=== PATIENT | female | born 1995 | race Caucasian/White ===

== ENCOUNTER 2017-12-02 19:49 | Inpatient (IN) | payer BC ==
[~2017-12-02] VITALS: Ht 165.1 cm; Wt 95.5 kg
[2017-12-02] MEDS ORDERED: EFFEXOR XR150 MG PO (20:17)
[2017-12-02] MEDS ORDERED: FARXIGA10 MG PO (20:17)
[2017-12-02] MEDS ORDERED: TRADJENTA5 MG PO (20:17)
[2017-12-02 21:31] LABS: BASOPHILS 0.2 % (0-2); EOSINOPHILS 0.5 % (0-7); HEMATOCRIT 36.6 % (36.0-48.0); IMMATURE GRANULOCYTES 0.6 % (0-5); LYMPHOCYTES 15.8 % (15-50); MCH 26.2 pg (26.0-34.0); MCHC 35.5 g/dL (31.0-37.0); MONOCYTES 7.7 % (2-11); NEUTROPHILS 75.2 % (40-80); RBC 4.96 10x6/uL (4.00-5.40); RDW 14.9 % (11.5-14.5); WBC 10.4 10x3/uL (4.8-10.8)
[2017-12-02 21:38] LABS: PLATELET COUNT 179 10x3/uL (130-400)
[2017-12-02 21:43] LABS: APPEARANCE CLEAR (CLEAR); BILIRUBIN NEGATIVE (NEGATIVE); COLOR YELLOW (YELLOW); GLUCOSE 1000 mg/dL (NEGATIVE); KETONE NEGATIVE (NEGATIVE); NITRITE NEGATIVE (NEGATIVE); PROTEIN NEGATIVE (NEGATIVE); SPECIFIC GRAVITY 1.015 (1.005-1.020); UROBILINOGEN NORMAL (NORMAL)
[2017-12-02 21:44] LABS: BACTERIA FEW /hpf (NONE SEEN); EPITHELIAL CELLS 0-5 /hpf (0-5); RED CELLS - URINE 0-5 /hpf (0-5); WHITE CELLS - URINE 0-5 /hpf (0-5); YEAST <1+ /hpf (NONE SEEN)
[2017-12-02 21:55] LABS: BILIRUBIN - TOTAL 0.93 mg/dL (0.2-1.3); CHLORIDE - SERUM 96 mmol/L (98-107); HCG - QUANTITATIVE (MATERNAL) 0 mIU/mL; LIPASE 621 U/L (73-393); POTASSIUM - SERUM 3.5 mmol/L (3.5-5.1); SODIUM 132 mmol/L (136-145)
[2017-12-02 22:07] LABS: CALC OSMOLALITY 271 mosm/kg (275-300); CREATININE - SERUM 0.6 mg/dL (0.6-1.3); UREA NITROGEN 11 mg/dL (7-18)
[2017-12-02 22:08] LABS: ALBUMIN 2.9 g/dL (3.4-5.0); ALKALINE PHOSPHATASE 111 U/L (46-116); ALT (SGPT) 28 U/L (10-68); CALCIUM 8.3 mg/dL (8.5-10.1); CARBON DIOXIDE 29.4 mmol/L (21.0-32.0); GLUCOSE 251 mg/dL (74-106); PROTEIN - SERUM 7.5 g/dL (6.4-8.2); eGFR NON AFRICAN AMERICAN > 90 mL/min (90-120)
[2017-12-02 23:08] LABS: HEMOGLOBIN 11.3 g/dL (12-16); MCV 73.9 fL (80.0-100.0)
[2017-12-03] MEDS ORDERED: HUMULIN R100 U/ML SC (05:09)
[2017-12-03] MEDS ORDERED: ELAVIL10 MG PO (05:29)
[2017-12-03] MEDS ORDERED: BUPROPION HCL100 M1 PO (05:29)
[2017-12-03] MEDS ORDERED: PROTONIX40 MG PO (05:29)
[2017-12-03] MEDS ORDERED: BUSPAR10 MG PO (05:30)
[2017-12-03] MEDS ORDERED: ADVIL200 MG PO (05:31)
[2017-12-03] MEDS ORDERED: CYCLOBENZAPRINE10 MG PO (05:31)
[2017-12-03 05:49] VITALS: BP 100/63
[2017-12-03 08:21] VITALS: BP 117/71
[2017-12-03 09:06] VITALS: BP 117/71; BMI 35.0
[2017-12-03 11:52] VITALS: BP 126/68
[2017-12-03 12:03] LABS: HEMOGLOBIN 11.1 g/dL (12-16); MCH 23.6 pg (26.0-34.0); MCHC 31.7 g/dL (31.0-37.0); MCV 74.3 fL (80.0-100.0); MEAN PLATELET VOLUME 11.5 fL (7.4-10.4); RBC 4.71 10x6/uL (4.00-5.40)
[2017-12-03 12:04] LABS: PLATELET COUNT 125 10x3/uL (130-400); WBC 7.4 10x3/uL (4.8-10.8)
[2017-12-03 12:36] LABS: EOSINOPHILS 1 % (0-7); LYMPHOCYTES 11 % (15-50); MONOCYTES 4 % (2-11); NEUTROPHILS 84 % (40-80); PLATELET MORPHOLOGY GIANT PLTS PRESENT
[2017-12-03 12:37] LABS: PLATELET ESTIMATE DECREASED
[2017-12-03 12:38] LABS: HYPOCHROMASIA 1+
[2017-12-03 13:20] LABS: ALBUMIN 2.7 g/dL (3.4-5.0); ALKALINE PHOSPHATASE 98 U/L (46-116); AMYLASE - SERUM 31 U/L (25-115); BILIRUBIN - TOTAL 0.46 mg/dL (0.2-1.3); CALC OSMOLALITY 282 mosm/kg (275-300); CALCIUM 8.4 mg/dL (8.5-10.1); CARBON DIOXIDE 21.3 mmol/L (21.0-32.0); CHLORIDE - SERUM 104 mmol/L (98-107); CREATININE - SERUM 0.6 mg/dL (0.6-1.3); GLUCOSE 154 mg/dL (74-106); LIPASE 277 U/L (73-393); POTASSIUM - SERUM 3.4 mmol/L (3.5-5.1); PROTEIN - SERUM 6.6 g/dL (6.4-8.2); SODIUM 141 mmol/L (136-145); UREA NITROGEN 10 mg/dL (7-18); eGFR NON AFRICAN AMERICAN > 90 mL/min (90-120)
[2017-12-03 13:58] LABS: ALT (SGPT) 21 U/L (10-68)
[2017-12-03 15:47] VITALS: BP 122/77
[2017-12-03 20:35] VITALS: BP 115/72
[2017-12-04 01:41] VITALS: BP 108/71
[2017-12-04 04:00] VITALS: BP 114/60
[2017-12-04 06:59] LABS: ALBUMIN 2.7 g/dL (3.4-5.0); ALKALINE PHOSPHATASE 109 U/L (46-116); ALT (SGPT) 18 U/L (10-68); BILIRUBIN - TOTAL 0.58 mg/dL (0.2-1.3); CARBON DIOXIDE 20.3 mmol/L (21.0-32.0); CHLORIDE - SERUM 102 mmol/L (98-107); CREATININE - SERUM 0.6 mg/dL (0.6-1.3); LIPASE 182 U/L (73-393); POTASSIUM - SERUM 3.8 mmol/L (3.5-5.1); PROTEIN - SERUM 6.5 g/dL (6.4-8.2); SODIUM 139 mmol/L (136-145); UREA NITROGEN 9 mg/dL (7-18); eGFR NON AFRICAN AMERICAN > 90 mL/min (90-120)
[2017-12-04 07:01] LABS: BASOPHILS 0.1 % (0-2); EOSINOPHILS 0.1 % (0-7); HEMATOCRIT 37.7 % (36.0-48.0); HEMOGLOBIN 11.5 g/dL (12-16); IMMATURE GRANULOCYTES 0.7 % (0-5); LYMPHOCYTES 9.2 % (15-50); MCH 23.5 pg (26.0-34.0); MCHC 30.5 g/dL (31.0-37.0); MONOCYTES 6.9 % (2-11); PLATELET COUNT 141 10x3/uL (130-400); RDW 15.6 % (11.5-14.5)
[2017-12-04 07:02] LABS: CALC OSMOLALITY 275 mosm/kg (275-300); GLUCOSE 75 mg/dL (74-106)
[2017-12-04 07:03] LABS: MCV 76.9 fL (80.0-100.0); WBC 10.8 10x3/uL (4.8-10.8)
[2017-12-04 07:07] LABS: CHOL - HDL RATIO 9.1 ratio (2.3-4.1); CHOLESTEROL, TOTAL 209 mg/dL (0-200); HDL CHOLESTEROL 23 mg/dL (32-96); TRIGLYCERIDE 670 mg/dL (30-200)
[2017-12-04 09:22] VITALS: BP 113/76
[2017-12-04 13:18] VITALS: Ht 165.1 cm; Wt 95.5 kg
[2017-12-04 16:24] VITALS: BP 113/71
[2017-12-04 21:58] VITALS: BP 113/74
[2017-12-05 00:56] VITALS: BP 107/61
[2017-12-05 05:42] LABS: BASOPHILS 0.1 % (0-2); EOSINOPHILS 1.1 % (0-7); HEMATOCRIT 30.9 % (36.0-48.0); HEMOGLOBIN 9.2 g/dL (12-16); IMMATURE GRANULOCYTES 0.6 % (0-5); MCH 23.1 pg (26.0-34.0); MCHC 29.8 g/dL (31.0-37.0); MCV 77.4 fL (80.0-100.0); MEAN PLATELET VOLUME 11.5 fL (7.4-10.4); MONOCYTES 8.4 % (2-11); NEUTROPHILS 75.8 % (40-80); PLATELET COUNT 150 10x3/uL (130-400); RBC 3.99 10x6/uL (4.00-5.40); RDW 15.7 % (11.5-14.5); WBC 8.1 10x3/uL (4.8-10.8)
[2017-12-05 06:10] VITALS: BP 116/72
[2017-12-05 06:16] LABS: INR 1.08 (0.85-1.17); PROTIME 13.6 SECONDS (11.6-15.0)
[2017-12-05 07:44] LABS: ALKALINE PHOSPHATASE 81 U/L (46-116); BILIRUBIN - TOTAL 0.37 mg/dL (0.2-1.3); CALCIUM 7.5 mg/dL (8.5-10.1); CARBON DIOXIDE 18.8 mmol/L (21.0-32.0); CHLORIDE - SERUM 99 mmol/L (98-107); CREATININE - SERUM 0.7 mg/dL (0.6-1.3); LIPASE 115 U/L (73-393); PROTEIN - SERUM 5.9 g/dL (6.4-8.2); SODIUM 129 mmol/L (136-145); eGFR NON AFRICAN AMERICAN > 90 mL/min (90-120)
[2017-12-05 07:46] LABS: ALT (SGPT) 12 U/L (10-68); AMYLASE - SERUM 18 U/L (25-115); POTASSIUM - SERUM 3.1 mmol/L (3.5-5.1); UREA NITROGEN 3 mg/dL (7-18)
[2017-12-05 08:25] VITALS: BP 115/69
[2017-12-05 08:58] LABS: CALC OSMOLALITY 259 mosm/kg (275-300)
[2017-12-05 09:00] LABS: GLUCOSE 177 mg/dL (74-106)
[2017-12-05 11:54] VITALS: BP 122/75
[2017-12-05 20:00] VITALS: BP 117/60
[2017-12-05 23:33] VITALS: BP 105/65
[2017-12-06 04:00] VITALS: BP 108/71
[2017-12-06 05:35] LABS: BASOPHILS 0.2 % (0-2); EOSINOPHILS 2.8 % (0-7); HEMATOCRIT 31.9 % (36.0-48.0); HEMOGLOBIN 9.9 g/dL (12-16); IMMATURE GRANULOCYTES 1.1 % (0-5); LYMPHOCYTES 24.9 % (15-50); MCH 23.4 pg (26.0-34.0); MONOCYTES 10.8 % (2-11); NEUTROPHILS 60.2 % (40-80); PLATELET COUNT 149 10x3/uL (130-400); RBC 4.23 10x6/uL (4.00-5.40); RDW 15.3 % (11.5-14.5)
[2017-12-06 06:03] LABS: MCV 75.4 fL (80.0-100.0); WBC 5.4 10x3/uL (4.8-10.8)
[2017-12-06 06:06] LABS: % SATURATION 9 % (15-55); IRON 26 ug/dl (35-150); TOTAL IRON BIND CAPACITY 282 ug/dl (260-445); UNSAT IRON BIND CAPACITY 256 ug/dl (150-375)
[2017-12-06 06:17] LABS: ALBUMIN 2.1 g/dL (3.4-5.0); ALKALINE PHOSPHATASE 82 U/L (46-116); ALT (SGPT) 13 U/L (10-68); BILIRUBIN - TOTAL 0.19 mg/dL (0.2-1.3); CALCIUM 8.3 mg/dL (8.5-10.1); CHLORIDE - SERUM 104 mmol/L (98-107); FERRITIN 71 ng/mL (3-244); GLUCOSE 172 mg/dL (74-106); LIPASE 171 U/L (73-393); PROTEIN - SERUM 6.2 g/dL (6.4-8.2); SODIUM 140 mmol/L (136-145)
[2017-12-06 06:18] LABS: AMYLASE - SERUM 25 U/L (25-115); CALC OSMOLALITY 278 mosm/kg (275-300); CARBON DIOXIDE 26.9 mmol/L (21.0-32.0); CREATININE - SERUM 0.5 mg/dL (0.6-1.3); POTASSIUM - SERUM 2.9 mmol/L (3.5-5.1); UREA NITROGEN 2 mg/dL (7-18); eGFR NON AFRICAN AMERICAN > 90 mL/min (90-120)
[2017-12-06 07:45] VITALS: BP 94/56
[2017-12-06 11:42] VITALS: BP 113/59
[2017-12-06] MEDS ORDERED: MIRALAX17 GM PO (12:15)
[2017-12-06] MEDS ORDERED: TRICOR48 MG PO (12:15)
== END 2017-12-06 15:33 | disposition home or self-care (01) | DRG 439 ==
LOC: D.ER 19:49 → D.EDHOLD 12-03 03:50 → D.M2 12-03 03:50 → D.SDCHOLD 12-04 15:55 → D.M2 12-06 15:33
PROVIDERS: Family Medicine; Internal Medicine Gastroenterology; Internal Medicine Nephrology
DX: K85.90 Acute pancreatitis without necrosis or infection, unspecified (principal); E87.1 Hypo-osmolality and hyponatremia; K21.9 Gastro-esophageal reflux disease without esophagitis; E78.1 Pure hyperglyceridemia; E11.9 Type 2 diabetes mellitus without complications; K59.00 Constipation, unspecified; F41.9 Anxiety disorder, unspecified; N83.202 Unspecified ovarian cyst, left side; N83.201 Unspecified ovarian cyst, right side; R16.2 Hepatomegaly with splenomegaly, not elsewhere classified; K75.81 Nonalcoholic steatohepatitis (NASH); E78.5 Hyperlipidemia, unspecified; D64.9 Anemia, unspecified; E66.9 Obesity, unspecified; Z68.35 Body mass index [BMI] 35.0-35.9, adult

== ENCOUNTER 2020-02-12 15:22 | Emergency (ER) | payer BC ==
[~2020-02-12] VITALS: Ht 165.1 cm; Wt 94.5 kg
[~2020-02-12 15:22] MED LIST: ADVIL200 MG PO; BUPROPION HCL100 M1 PO; BUSPAR10 MG PO; CYCLOBENZAPRINE10 MG PO; EFFEXOR XR150 MG PO; ELAVIL10 MG PO; FARXIGA10 MG PO; HUMULIN R100 U/ML SC; MIRALAX17 GM PO; PROTONIX40 MG PO; TRADJENTA5 MG PO; TRICOR48 MG PO
[2020-02-12 15:38] VITALS: Ht 165.1 cm; Wt 94.5 kg
[2020-02-12 16:39] LABS: BASOPHILS 1.9 % (0-2); EOSINOPHILS 0.7 % (0-7); HEMATOCRIT 39.2 % (36.0-48.0); HEMOGLOBIN 14.1 g/dL (12-16); IMMATURE GRANULOCYTES 0.2 % (0-5); MCH 28.3 pg (26.0-34.0); MCV 78.6 fL (80.0-100.0); MEAN PLATELET VOLUME 12.1 fL (7.4-10.4); MONOCYTES 8.7 % (2-11); NEUTROPHILS 66.5 % (40-80); RBC 4.99 10x6/uL (4.00-5.40); RDW 12.7 % (11.5-14.5)
[2020-02-12 16:40] LABS: PLATELET COUNT 204 10x3/uL (130-400)
[2020-02-12 16:59] LABS: ALBUMIN 3.7 g/dL (3.4-5.0)
[2020-02-12 17:00] LABS: BILIRUBIN - TOTAL 0.37 mg/dL (0.2-1.3)
[2020-02-12 17:01] LABS: ALKALINE PHOSPHATASE 67 U/L (30-120); GLUCOSE 377 mg/dL (74-106); PROTEIN - SERUM 6.2 g/dL (6.4-8.2)
[2020-02-12 17:03] LABS: CREATININE - SERUM 0.8 mg/dL (0.6-1.3); UREA NITROGEN 11 mg/dL (7-18); eGFR NON AFRICAN AMERICAN > 90 mL/min (90-120)
[2020-02-12 17:04] LABS: CALC OSMOLALITY 278 mosm/kg (275-300); CHLORIDE - SERUM 95 mmol/L (98-107); POTASSIUM - SERUM 3.4 mmol/L (3.5-5.1); SODIUM 132 mmol/L (136-145)
[2020-02-12 17:05] LABS: ALT (SGPT) 26 U/L (10-68); CARBON DIOXIDE 22.8 mmol/L (21.0-32.0)
[2020-02-12 17:06] LABS: AMYLASE - SERUM 30 U/L (25-115); LIPASE 134 U/L (73-393); TROPONIN-I 0.054 ng/mL (0.000-0.060)
[2020-02-12] MEDS ORDERED: LEVSIN/ANASP0.125 MG PO (19:29)
[2020-02-12] MEDS ORDERED: PEPCID40 MG PO (19:29)
[2020-02-12 19:34] LABS: HCG URINE NEGATIVE (NEGATIVE)
[2020-02-12 19:44] LABS: BILIRUBIN NEGATIVE (NEGATIVE); KETONE NEGATIVE (NEGATIVE); NITRITE NEGATIVE (NEGATIVE); UROBILINOGEN NORMAL mg/dL (< 2)
[2020-02-12 19:45] LABS: BACTERIA MODERATE /HPF (NONE SEEN)
[2020-02-12] MEDS ORDERED: MACROBID100 MG PO (19:49)
[2020-02-12 20:09] VITALS: BP 120/81
== END 2020-02-12 20:09 | disposition home or self-care (01) ==
LOC: D.ER 15:22
PROVIDERS: Family Medicine
DX: R10.13 Epigastric pain (principal); K29.70 Gastritis, unspecified, without bleeding; E11.65 Type 2 diabetes mellitus with hyperglycemia; E83.51 Hypocalcemia; E87.6 Hypokalemia; E87.1 Hypo-osmolality and hyponatremia; N39.0 Urinary tract infection, site not specified

== ENCOUNTER 2020-11-16 19:35 | Emergency (ER) | payer OTHER ==
[~2020-11-16] VITALS: Ht 165.1 cm; Wt 94.8 kg
[~2020-11-16 19:35] MED LIST changes: +LEVSIN/ANASP0.125 MG PO; +MACROBID100 MG PO; +PEPCID40 MG PO
[2020-11-16] MEDS ORDERED: CRESTOR10 MG PO (19:50)
[2020-11-16] MEDS ORDERED: NOVOLOG100 UNIT/1 SC (19:51)
[2020-11-16] MEDS ORDERED: LANTUS SOL100 UNIT/2 SC (19:51)
[2020-11-16 19:52] VITALS: Ht 165.1 cm; Wt 94.8 kg
[2020-11-16] MEDS ORDERED: [UNRECOGNIZED DRUG - OTHER] (19:52)
[2020-11-16 20:23] LABS: BASOPHILS 0.8 % (0-2); EOSINOPHILS 2.1 % (0-7); HEMATOCRIT 38.5 % (36.0-48.0); HEMOGLOBIN 12.3 g/dL (12-16); LYMPHOCYTES 31.6 % (15-50); MCH 23.1 pg (26.0-34.0); MCV 72.4 fL (80.0-100.0); MEAN PLATELET VOLUME 9.1 fL (7.4-10.4); MONOCYTES 7.4 % (2-11); NEUTROPHILS 58.1 % (40-80); RBC 5.32 10x6/uL (4.00-5.40); RDW 17.8 % (11.5-14.5); WBC 8.6 10x3/uL (4.8-10.8)
[2020-11-16 20:39] LABS: PLATELET COUNT 303 10x3/uL (130-400)
[2020-11-16 20:41] LABS: BACTERIA FEW HPF (<MOD); BILIRUBIN NEGATIVE (NEGATIVE); KETONE TRACE mg/dL (< 1+); NITRITE NEGATIVE (NEGATIVE); PH 5.5 (5.0-8.0); SQUAMOUS EPITHELIAL 1 HPF (0-4); UROBILINOGEN 2 mg/dL (< 2); WHITE CELLS - URINE 2 HPF (0-4)
[2020-11-16 20:45] LABS: HCG URINE NEGATIVE (NEGATIVE)
[2020-11-16 20:56] LABS: CALC OSMOLALITY 280 mosm/kg (275-300); CALCIUM 9.3 mg/dL (8.5-10.1); CARBON DIOXIDE 25.5 mmol/L (21.0-32.0); CHLORIDE - SERUM 103 mmol/L (98-107); CREATININE - SERUM 0.8 mg/dL (0.6-1.3); POTASSIUM - SERUM 3.3 mmol/L (3.5-5.1); SODIUM 139 mmol/L (136-145); UREA NITROGEN 8 mg/dL (7-18); eGFR NON AFRICAN AMERICAN > 90 mL/min (90-120)
[2020-11-16 20:58] LABS: GLUCOSE 180 mg/dL (74-106)
[2020-11-16 21:02] LABS: ALKALINE PHOSPHATASE 69 U/L (30-120); ALT (SGPT) 23 U/L (10-68); AMYLASE - SERUM 22 U/L (25-115); BILIRUBIN - TOTAL 0.25 mg/dL (0.2-1.3); LIPASE 65 U/L (73-393); PROTEIN - SERUM 7.9 g/dL (6.4-8.2)
[2020-11-17 01:00] VITALS: BP 111/69
== END 2020-11-17 02:40 | disposition home or self-care (01) ==
LOC: D.ER 19:35
PROVIDERS: Family Medicine
DX: R10.9 Unspecified abdominal pain (principal); E11.9 Type 2 diabetes mellitus without complications